=== PATIENT | female | born 1975 ===

== ENCOUNTER 2016-12-18 09:09 | Emergency (ER) | payer OTHER ==
[2016-12-18 09:45] VITALS: TEMP 98.2; BMI 30.7
--- NOTE | 2016-12-18 11:11 | C.PDOC ---
History Of Present Illness 41 y/o female presents to the ED with complains of swelling around eyes, hands and feet since waking up this morning. Symptoms are not associated with itching or redness. Pt took antihistamine [employer] and symptoms have improved. Pt denies SOB , chest pain, fever. Time Seen by Provider: 12/18/16 10:24 Chief Complaint (Nursing): Abnormal Skin Integrity History Per: Patient History/Exam Limitations: no limitations Onset/Duration Of Symptoms: Hrs Current Symptoms Are (Timing): Better Quality Of Symptoms: Swollen. denies: Itching Severity: Mild Past Medical History Reviewed: Historical Data, Nursing Documentation, Vital Signs Vital Signs: Last Vital Signs Temp 98.2 F 12/18/16 11:21 Pulse 80 12/18/16 11:21 Resp 18 12/18/16 11:21 BP 148/90 12/18/16 11:21 Pulse Ox 100 12/18/16 11:21 - Medical History PMH: Hypercholesterolemia, Hyperlipidemia, Migraine, TIA (nov 07, 2016) Family History: States: No Known Family Hx - Social History Hx Alcohol Use: No Hx Substance Use: No - Immunization History Hx Tetanus Toxoid Vaccination: No Hx Influenza Vaccination: No Hx Pneumococcal Vaccination: No Review Of Systems Except As Marked, All Systems Reviewed And Found Negative. Constitutional: Negative for: Fever Cardiovascular: Negative for: Chest Pain Respiratory: Negative for: Cough, Shortness of Breath Musculoskeletal: Positive for: Other (swelling around eyes, hands, feet; no itching or redness) Skin: Negative for: Rash Physical Exam - Physical Exam Appears: Well, Non-toxic, No Acute Distress Skin: Warm, Dry, No Rash Head: Normacephalic, Other (no facial edema) Eye(s): bilateral: PERRL, EOMI Oral Mucosa: Moist Tongue: Normal Appearing, No Swelling Lips: Normal Appearing, No Swelling Throat: Normal, No Erythema, No Exudate Neck: Normal, Normal ROM, Supple Chest: Symmetrical Cardiovascular: Rhythm Regular Respiratory: Normal Breath Sounds, No Rales, No Rhonchi, No Wheezing Extremity: Normal ROM, No Calf Tenderness, No Deformity, Other (Mild bilateral hand swelling, no erythema. No feet swelling) Neurological/Psych: Oriented x3 ED Course And Treatment O2 Sat by Pulse Oximetry: 98 (on room air) Pulse Ox Interpretation: Normal Progress Note: Plan: Patient offered blood work to evaluate kidney function - patient feeling better since taking benadryl and prefers to follow up with her PMD. She was instructed to follow up with PMD in 1-2 days, and understands she should return to ED if symptoms worsen. Disposition Counseled Patient/Family Regarding: Diagnosis, Need For Followup, Rx Given - Disposition Referrals: [facility] [Outside] Disposition: HOME/ ROUTINE Disposition Time: 11:10 Condition: STABLE Additional Instructions: FOLLOW UP WITH YOUR DOCTOR IN 1-2 DAYS HAVE THEM EVALUATE YOUR KIDNEY FUNCTION (BUN/CR) RETURN TO ER IF SYMPTOMS WORSEN Instructions: Edema (ED) Print Language: SYRIAC - POA Present On Arrival: None - Clinical Impression Clinical Impression: Edema - Scribe Statement The provider has reviewed the documentation as recorded by the Noy Yoder Provider Attestation: All medical record entries made by the Noy were at my direction and personally dictated by me. I have reviewed the chart and agree that the record accurately reflects my personal performance of the history, physical exam, medical decision making, and the department course for this patient. I have also personally directed, reviewed, and agree with the discharge instructions and disposition.
[2016-12-18 11:22] VITALS: BP 148/90; PULSE 80; RESP 18
[2016-12-29 11:08] VITALS: O2SAT 98
== END 2016-12-18 11:21 | disposition home or self-care (01) ==
LOC: C.ER 09:09
DX: R60.9 Edema, unspecified (principal)